=== PATIENT | male | born 1950 | race Caucasian/White ===

== ENCOUNTER → 2019-10-30 11:15 | Outpatient (BNVA) | payer MEDICARE, OTHER, SELFPAY | PROVIDERS: Family Provider Nurse Practitioner Family; PCP Nurse Practitioner Family; Referring Provider Family Medicine; Visit Provider Specialist | DX: M25.562 Pain in left knee (principal); M17.12 Unilateral primary osteoarthritis, left knee | CPT/HCPCS: 73560; 73565 ==

== ENCOUNTER 2019-11-08 07:42 | Day surgery (SDC) | payer MEDICARE, OTHER, SELFPAY ==
[2019-11-07 12:07] VITALS: BMI 30.2
[2019-11-08 08:00] VITALS: BP 160/92; PULSE 58; RESP 16; TEMP 36.6; O2SAT 98
--- NOTE | 2019-11-08 08:10 | ANES.PREANE2 ---
Pre-Anesthetic Assessment Pre-Anesthetic Assessment: Height/Weight: Height 1.75 m Weight 92.986 kg Temp Pulse Resp BP Pulse Ox 97.9 F 58 L 16 160/92 98 11/08/19 08:00 11/08/19 08:00 11/08/19 08:00 11/08/19 08:00 11/08/19 08:00 Preop Diagnosis: Left knee medial meniscal tear Proposed Procedure: Operation Date: 11/08/19 09:30 Proposed Procedures p Knee Arthroscopy with medial menisectomy and debridement 57635(Left) - Rachell Monet MD Familial anesthetic complications: None Was Beta Westley taken within 24 hours: Yes Last intake: Intake Last Liquid Date 11/08/19 Last Liquid Time 02:30 Last Solid Date 11/07/19 Last Solid Time 16:00 Social: Social History: No alcohol and No tobacco Exam: Pre-Anes Outpt Exam: alert, oriented x 3, clear to auscultation bilaterally and regular rate & rhythm Airway: Cervical ROM: WNL MP: 3 Dentition: Full Pulmonary: Pulmonary: Sleep apnea ((denies BERNARD, but listed in charted)) Comments: pulm HTN (Patient states this was 20 years ago, denies as SOB or lung troubles) secondary polycythemia CV/HEM: CV/HEM: CAD (2 stents - february 2004, on ASA) and HTN : Comments: CKD d/t polycystic kidneys Kidney txp April 14 2004 on immunosuppressants Metabolic: Metabolic: Hyperlipidemia Anesthetic Plan: ASA status: 2 Anesthesia: General Risk of > 500 ml blood loss (7ml/kg in children): No PFSH Anesthesia PFSH: Medical History (Updated 11/08/19 @ 08:19 by Rachell Monet MD) CAD (coronary artery disease) Chronic kidney disease HTN (hypertension) Hx of basal cell carcinoma 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
--- NOTE | 2019-11-08 08:19 | P.HPUD_ITS ---
Surgery/Procedure H&P Update DATE OF PROCEDURE: November 08, 2019 DATE H&P PERFORMED: 10/30/19 H&P UPDATE INFORMATION: I have reviewed H&P completed within last 30 days, I have examined patient prior to procedure, No changes to prior documentation and [place] [facility] [place] indicated PREOP DIAGNOSIS: Left knee medial meniscal tear and severe osteoarthritis PLANNED PROCEDURE: Operation Date: 11/08/19 09:30 Proposed Procedures p Knee Arthroscopy with medial menisectomy and debridement [id number](Left) - Rachell Monet MD Related Problem List Diagnoses (1) Acute medial meniscus tear of left knee: Qualifiers: Encounter type: initial encounter Qualified Code(s): S83.242A - Other tear of medial meniscus, current injury, left knee, initial encounter (2) Primary osteoarthritis of right knee:
[2019-11-08] MEDS: sodium chloride 0.9% 1,000 ML 30 ML IV (08:21)
[2019-11-08 08:42] LABS: Basophils % 0.5 %; Eosinophils # 0.2 10^3/uL (0.0-0.8); Hematocrit 48.1 % (42.0-52.0); Hemoglobin 15.2 g/dL (11.7-16.6); Lymphocytes # 1.3 10^3/uL (0.8-4.8); Lymphocytes % 22.2 %; Mean Corpuscular HGB Conc 31.6 g/dL (30.0-36.0); Mean Corpuscular Hemoglobin 28.1 pg (28.0-34.0); Mean Corpuscular Volume 88.9 fL (80-94); Mean Platelet Volume 11.5 fL (7.4-10.4); Monocytes # 0.6 10^3/uL (0.2-0.9); Monocytes % 10.1 %; Neutrophils # 3.66 10^3/uL (1.8-7.7); Neutrophils % 63.9 %; Nucleated Red Blood Cells % 0 %; Platelet Count 130 10^3/cmm (130-400); Red Blood Count 5.41 10^6/uL (4.1-5.3); Red Cell Distribution Width 13.1 % (12.1-15.1); White Blood Count 5.7 10^3/uL (4.0-10.0)
[2019-11-08 09:16] LABS: Alanine Aminotransferase 15 U/L (0-41); Albumin Level 3.6 g/dL (3.5-5.2); Alkaline Phosphatase 58 IU/L (40-130); Anion Gap 13.2 (5-19); Aspartate Amino Transferase 15 U/L (0-40); Blood Urea Nitrogen 30 mg/dL (8-23); Calcium 8.7 mg/dL (8.5-10.5); Carbon Dioxide 22 mmol/L (22-29); Chloride 107 mmol/L (98-107); Globulin 2.3 g/dL (1.3-4.6); Glomerular Filtration Rate 28.3 mL/min (90-130); Glucose 99 mg/dL (65-115); Osmolality Calculated 283 mOsm/kg (285-295); Potassium 4.2 mmol/L (3.5-5.1); Sodium 138 mmol/L (136-145); Total Bilirubin 0.5 mg/dL (0.15-1.2); Total Protein 5.9 g/dL (6.6-8.7)
[2019-11-08] MEDS: clindamycin 600 MG/50 ML PREMIX 100 MG IV (10:19)
[2019-11-08 10:26] LABS: Slide Review Slide Review Perform
[2019-11-08] MEDS: morphine 4 mg/mL SDV 1 mL 8 MG IM (11:25)
[2019-11-08 11:55] VITALS: BP 122/71; PULSE 60; RESP 16; TEMP 36.6; O2SAT 96
[2019-11-08 12:00] VITALS: BP 148/88; PULSE 55; RESP 17; O2SAT 98
[2019-11-08 12:05] VITALS: BP 142/78; PULSE 52; RESP 19; TEMP 36.8; O2SAT 97
--- NOTE | 2019-11-08 12:05 | SUR.PHASEI ---
PT AWAKE ALERT TALKATIVE DENIES PAIN AND NAUSEA, LT KNEE DRESSING D/I WITH STRONG PULSE NOTED TO FOOT.
--- NOTE | 2019-11-08 12:11 | P.OP_ITS ---
Operative Report Date of procedure: November 08, 2019 Pre-op Diagnosis: Left knee medial meniscal tear and severe osteoarthritis Post-op Diagnosis: Left knee medial and lateral meniscal tears with severe degenerative osteoarthritis Procedure Done: Left arthroscopic knee surgery with partial medial and lateral meniscectomies with chondroplasty medial femoral condyle and tibial plateau. Specimens removed/disposition: None Pathology: none sent Surgeon: Rachell Monet [employer]apons Sergeant: Fox Marti Anesthesia: General (LMA) Estimated blood loss (mL): 10 Tourniquet time (min): 32 IV fluids (mL): 400 Urine output (mL): 0 Complications: None Findings: Complex medial meniscal tear and degenerative inner rim lateral meniscal tear with significant degenerative osteoarthritis medial and lateral compartments Condition: stable Disposition: PACU Brief History: This 69-year-old gentleman presented with acute on chronic pain in the left knee. The patient wished to proceed with arthroscopic intervention after an MRI demonstrated a medial meniscal tear. The patient knew he had osteoarthritis at the time of the MRI and our discussion in clinic, and he understands now that the arthroscopy could aggravate his arthritic type of pain. Given the sudden change in his pain, however, he wished to proceed with arthroscopic intervention to see if he could return to his baseline which was quite functional for him. Risks and complications were discussed. Consents were signed preoperatively. Procedure: Patient was brought to the operating theater and after undergoing adequate general anesthesia per LMA, the patient's left lower extremity was prepped and draped in usual fashion utilizing DuraPrep. A tourniquet was placed high on the leg prior to prepping and draping. The tourniquet was elevated prior to commencement of the surgical procedure to 250 mmHg. Total tourniquet time was 32 minutes. Elevation followed prepping and exsanguination. Prior to commencement of the surgical procedure, a surgical pause was performed. At the time of the surgical pause, we identified the site and side of surgery. We also confirm the patient's identity and appropriate and timely administration of preoperative antibiotics. Preoperative surgical markings were also visualized at this time. Standard arthroscopic portals were utilized including superolateral, inferomedial, and inferolateral portals. The examination commenced in the suprapatellar pouch area where the patient was noted to have chondromalacia of the significant degree on the undersurface of the patella. The arthroscope was then passed in the medial compartment where there was noted to be complex tearing of the posterior half of the meniscus. There was also noted to be significant chondromalacic change particularly involving the medial femoral condyle but also the medial tibial plateau. The arthroscope was then passed across the notch area where anterior cruciate ligament was visualized and found to be intact. The scope was passed into the lateral compartment with the knee in a [id number] position. Lateral meniscus was noted to have inner rim degenerative type tearing. This was addressed with a combination of the intra- articular shaver and the intra-articular heat wand. The meniscus was balanced, palpated, and found to not be displaceable into the joint. Scope was then returned to the medial compartment where there was noted to be the medial meniscal tear as well as chondromalacia, grade 4, of the medial femoral condyle and medial tibial plateau. A partial medial meniscectomy was accomplished with a combination of basket forceps the intra-articular shaver and the heat wand. Additionally, chondroplasty was performed primarily of the medial femoral condyle. The meniscus was again palpated and found to be not displaceable into the knee joint. The arthroscope was then returned to the patellofemoral joint where a chondroplasty was performed of the undersurface of the patella. This chondroplasty involved use of the intra-articular shaver as well as the heat wand. A synovectomy was also performed in this area. Once the patella had been addressed, the scope was passed back through the knee compartments to evaluate for other abnormalities. Finding none, attention was directed to closure. The knee was copiously irrigated and suctioned dry. Following this, each portal was closed with a simple suture followed by Exofin and Tegaderm. Additionally, the knee was injected with 20 mL of half percent ropivacaine and 8 mg of morphi ne. Additional 10 mL of ropivacaine was placed about the portals. Sterile dressing was placed consisting of soft roll followed by the Gualberto wrap. Patient was returned to Recovery Room in satisfactory condition where he will be discharged home to follow-up with me in the office as scheduled. There were no complications and no specimens. Associated Problem List Diagnoses (1) Acute medial meniscus tear of left knee: Qualifiers: Encounter type: initial encounter Qualified Code(s): S83.242A - Other tear of medial meniscus, current injury, left knee, initial encounter (2) Primary osteoarthritis of right knee:
[2019-11-08 12:21] VITALS: BP 141/84; PULSE 51; RESP 18; TEMP 36.8; O2SAT 93
[2019-11-08 12:50] VITALS: BP 139/84; PULSE 53; RESP 18; O2SAT 95
== END 2019-11-08 12:51 | disposition home or self-care (01) ==
PROVIDERS: PCP Family Medicine; Visit Provider Specialist
PROC: (CPT 29870; principal; 2019-11-08 09:30)
DX: S83.232A Complex tear of medial meniscus, current injury, left knee, initial encounter (principal); S83.282A Other tear of lateral meniscus, current injury, left knee, initial encounter; M17.11 Unilateral primary osteoarthritis, right knee; I25.10 Atherosclerotic heart disease of native coronary artery without angina pectoris; I12.9 Hypertensive chronic kidney disease with stage 1 through stage 4 chronic kidney disease, or unspecified chronic kidney disease; N18.9 Chronic kidney disease, unspecified; E78.5 Hyperlipidemia, unspecified; G47.33 Obstructive sleep apnea (adult) (pediatric); Q61.3 Polycystic kidney, unspecified; I27.20 Pulmonary hypertension, unspecified; D75.1 Secondary polycythemia; Z79.891 Long term (current) use of opiate analgesic; Z85.828 Personal history of other malignant neoplasm of skin; Z94.0 Kidney transplant status; X58.XXXA Exposure to other specified factors, initial encounter
CPT/HCPCS: 29880; 12345; 36415; 80053; 85025; 96365; J0131; J1100; J2270; J2405; J2704; J2795; J3010; J3490; J7030

== ENCOUNTER → 2019-11-28 10:13 | Outpatient (BNVA) | payer MEDICARE, OTHER, SELFPAY | PROVIDERS: PCP Family Medicine; Visit Provider Specialist | DX: M65.311 Trigger thumb, right thumb (principal); M18.11 Unilateral primary osteoarthritis of first carpometacarpal joint, right hand | CPT/HCPCS: 73130 ==

== ENCOUNTER 2019-12-13 07:33 | Day surgery (SDC) | payer MEDICARE, OTHER, SELFPAY ==
[2019-12-12 13:05] VITALS: BMI 29.5
[2019-12-13 08:01] VITALS: BP 175/101; PULSE 57; RESP 18; TEMP 36.4; O2SAT 98
[2019-12-13] MEDS: sodium chloride 0.9% 1,000 ML 30 ML IV (08:06)
[2019-12-13] MEDS: vancomycin 1,000 MG in sodium chloride 0.9% 250 ML 250 MG IV (08:11)
--- NOTE | 2019-12-13 08:12 | ANES.PREANE2 ---
Pre-Anesthetic Assessment Pre-Anesthetic Assessment: Height/Weight: Height 1.75 m Weight 90.718 kg Temp Pulse Resp BP Pulse Ox 97.6 F 57 L 18 175/101 98 12/13/19 08:01 12/13/19 08:01 12/13/19 08:01 12/13/19 08:01 12/13/19 08:01 Preop Diagnosis: Right trigger thumb Proposed Procedure: Operation Date: 12/13/19 09:45 Proposed Procedures p Trigger Finger Release right thumb 18864 M65.311(Right) - Rachell Monet MD Familial anesthetic complications: None Was Beta Westley taken within 24 hours: N/A Last intake: Intake Last Liquid Date 12/13/19 Last Liquid Time 03:00 Last Solid Date 12/12/19 Last Solid Time 16:00 Social: Social History: No alcohol and No tobacco Exam: Pre-Anes Outpt Exam: alert, oriented x 3, clear to auscultation bilaterally and regular rate & rhythm Airway: Cervical ROM: WNL MP: 3 Dentition: Full Pulmonary: Pulmonary: Sleep apnea Comments: Pulm HTN years ago - no current respiratory issues per patient CV/HEM: CV/HEM: CAD (2 stents in 2003 on ASA) and HTN : : Chronic renal Insufficiency Comments: Polycystic kidneys - kidney txp in 2004 on immunosuppressants Metabolic: Metabolic: Hyperlipidemia Comments: polycythemia Neuropsych: Neuropsych: Neuropathy Anesthetic Plan: ASA status: 2 Anesthesia: MAC and Regional (specify below) Risk of > 500 ml blood loss (7ml/kg in children): No Meds/Allergies Current Medications: Current Medications Generic Name Dose Route Start Last Admin Trade Name Freq PRN Reason Stop Dose Admin Sodium Chloride 1,000 mls @ 30 ml s/hr 12/13/19 08:00 12/13/19 08:06 Sodium Chloride 0.9% IV 12/14/19 07:59 30 mls/hr .Q24H KWESI Administration Vancomycin HCl 1,0 00 mg/ 250 mls @ 250 mls /hr 12/13/19 07:52 12/13/19 08:11 Sodium Chloride IV 12/13/19 08:51 250 mls/hr ONCE ONE Administration Protocol PFSH Anesthesia PFSH: Medical History (Updated 11/28/19 @ 14:57 by Rachell Monet MD) CAD (coronary artery disease) Chronic kidney disease HTN (hypertension) Hx of basal cell carcinoma 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
--- NOTE | 2019-12-13 08:13 | W.PM.OPSUD ---
Surgery/Procedure H&P Update DATE OF PROCEDURE: December 13, 2019 DATE H&P PERFORMED: 11/28/19 H&P UPDATE INFORMATION: I have reviewed H&P completed within last 30 days, I have examined patient prior to procedure and H&P is in [facility] [place] on date indicated PREOP DIAGNOSIS: Right trigger thumb PLANNED PROCEDURE: Operation Date: 12/13/19 09:45 Proposed Procedures p Trigger Finger Release right thumb [id number] M65.311(Right) - Rachell Monet MD Related Problem List Diagnoses (1) Trigger thumb, right thumb:
[2019-12-13 09:51] VITALS: BP 120/72; PULSE 76; RESP 18; TEMP 36.1; O2SAT 97
--- NOTE | 2019-12-13 10:00 | PM.OP ---
Operative Report Date of procedure: December 13, 2019 Pre-op Diagnosis: Right trigger thumb Post-op diagnosis: same Post-op Findings: Some irritation of the flexor tendon of the thumb. Procedure Done: Right trigger thumb release Specimens removed/disposition: None Pathology: none sent Surgeon: Rachell Monet Mechanical Intern: None Anesthesia: MAC (With [place] block) Estimated blood loss (mL): 5 Tourniquet time (min): 31 (At 250 mmHg) IV fluids (mL): 5,010 Urine output (mL): 0 Complications: None Findings: Significant triggering with irritation and swelling at the tendon. Thickened A1 caden. Condition: stable Disposition: same day Brief History: This 69-year-old gentleman presented with complaints of significant triggering of his right thumb. This was reproducible, and he wished to have it released. Risks and complications were discussed with him. Consents were signed and arrangements were made for release. Procedure: Patient was brought to the operating theater. He was placed on the operating room table. A [place] block was administered without difficulty. Patient tolerated it well. 1 g of vancomycin was administered preoperatively as prophylaxis. A tourniquet was placed high on the arm and was elevated for the [place] block. This followed exsanguination of the arm. Tourniquet time was 31 minutes. Surgical pause was performed prior to commencement of the surgical procedure. At the time of the surgical pause we identified the site and side of surgery. We also identified the patient's identity and appropriate administration of IV antibiotics. Following the surgical pause, an incision was made proximally along the metacarpal phalangeal crease of the thumb. Dissection continued through the skin to the subcutaneous tissues using a scalpel. Blunt dissection was then utilized to spread soft tissues and allow access to the A1 caden. The A1 caden was identified. It was then incised longitudinally and sharply using a knife. This was accomplished without difficulty and atraumatically. Once the A1 caden was released, tendon was brought up out of the wound and evaluated. There were no gross masses on the tendon, but it was thickened. Tendon was returned to normal position. We then irrigated the wound and subsequently closed it with 3-0 nylon with an interrupted mattress type suture. Following closure of the wound, the wound was injected with 3 mL of bupivacaine into the subcutaneous tissues as a local anesthetic. Sterile dressing was then placed consisting of Telfa, Tegaderm, fluffed fluffs sterile soft roll, and an Gualberto wrap. The patient was returned to recovery in satisfactory condition. He will be discharged home to follow-up with me in the office. There were no complications and no specimens. Associated Problem List Diagnoses (1) Trigger thumb, right thumb:
--- NOTE | 2019-12-13 10:10 | ANE.PACU2 ---
Inpatient post-anesthesia follow up: Airway intact: Yes Vital signs: Temperature 97.0 F Pulse Rate 47 Respiratory Rate 18 Blood Pressure 139/81 Pulse Oximetry 97 Oxygen Delivery Me thod Room Air Oxygen Flow Rate Fraction of Inspir ed Oxygen Nausea and vomiting: No Pain level: 1 Mental status: Baseline
[2019-12-13 10:20] VITALS: BP 139/81; PULSE 47; RESP 18; O2SAT 97
== END 2019-12-13 10:35 | disposition home or self-care (01) ==
PROVIDERS: PCP Family Medicine; Visit Provider Specialist
PROC: (CPT 26055; principal; 2019-12-13 09:35)
DX: M65.311 Trigger thumb, right thumb (principal); I12.9 Hypertensive chronic kidney disease with stage 1 through stage 4 chronic kidney disease, or unspecified chronic kidney disease; N18.9 Chronic kidney disease, unspecified; I25.10 Atherosclerotic heart disease of native coronary artery without angina pectoris; E78.5 Hyperlipidemia, unspecified; G47.33 Obstructive sleep apnea (adult) (pediatric); I27.20 Pulmonary hypertension, unspecified
CPT/HCPCS: 26055; 12345; 96365; J3010; J3370; J3490; J7030; J7050

== ENCOUNTER → 2020-09-02 10:38 | Outpatient (BNVA) | payer MEDICARE, OTHER, SELFPAY | PROVIDERS: PCP Family Medicine; Referring Provider Family Medicine; Visit Provider Specialist | DX: M25.512 Pain in left shoulder (principal) | CPT/HCPCS: 73030 ==

== ENCOUNTER → 2020-09-04 14:23 | Outpatient (BNVA) | payer MEDICARE, OTHER, SELFPAY | PROVIDERS: PCP Family Medicine; Visit Provider Nurse Practitioner Family | DX: L03.90 Cellulitis, unspecified (principal) | CPT/HCPCS: 87070; 87075; 87205 ==